=== PATIENT | female | born 1990 | race Caucasian/White ===

== ENCOUNTER 2023-07-16 04:53 | Inpatient (IN) ==
[2023-07-16] MEDS ORDERED: Lactated Ringers 1000 ml BAG 1,000 ML IV ONE (05:33)
[2023-07-16] MEDS ORDERED: Buffered Lidocaine 1% SYRIN 1 ml INTRADERM ONE (05:33)
[2023-07-16] MEDS ORDERED: Lidocaine 1% VIAL 10 MG/ML 30 ML VIAL INJ PRN (05:33)
[2023-07-16] MEDS ORDERED: Lactated Ringers 1000 ml BAG 1,000 ML IV SCH ×2 (06:00→20:00)
[2023-07-16] MEDS ORDERED: Oxytocin 10 UNITS/ML 1 ML VIAL IM ONE (19:40)
[2023-07-16] MEDS ORDERED: Glycerin ADULT 2.4 gm SUPP PR PRN (19:40)
[2023-07-16] MEDS: Witch Hazel PAD JAR TOPICAL PRN (21:21)
[2023-07-16] MEDS: Dibucaine 1% OINT 28.35 GM TUBE PR PRN (21:21)
[2023-07-17 07:22] LABS: ABS Lymphocytes 1.5 10^3/uL (1.0-4.8); ABS Monocytes 0.9 10^3/uL (0.0-0.9); ABS Neutrophils 9.8 10^3/uL (1.5-7.6); Eosinophil % 0.2 %; Hematocrit 29.1 % (35-45); Hemoglobin 10.4 g/dL (11.5-14.3); Lymphocyte % 11.9 %; Mean Corpuscular Hemoglobin 33.9 pg (27-33); Mean Corpuscular Hgb Conc 35.6 g/dL (31-36); Mean Corpuscular Volume 95.1 fL (80-97); Mean Platelet Volume 8.7 fL (7.5-11.2); Platelet Count 169 10^3/uL (150-450); Red Blood Count 3.06 10^6/uL (3.63-4.92); Red Cell Distribution Width 13.8 % (12-17); White Blood Count 12.3 10^3/uL (3.8-11.8)
[2023-07-17] MEDS: Witch Hazel PAD JAR TOPICAL PRN (20:11)
[2023-07-17] MEDS: Dibucaine 1% OINT 28.35 GM TUBE PR PRN (20:15)
[2023-07-18 07:43] VITALS: BP 102/66
[2023-07-18] MEDS: Dibucaine 1% OINT 28.35 GM TUBE PR PRN (10:22)
[2023-07-18] MEDS: Witch Hazel PAD JAR TOPICAL PRN (10:22)
== END 2023-07-18 12:50 | disposition home or self-care (01) | DRG 560 ==
LOC: MCHOBOUT 04:53 → MCHOB 05:00
PROVIDERS: ADMIT Midwife; ATTEND Midwife